=== PATIENT | male | born 1970 | race Two or more races ===

== ENCOUNTER 2023-12-16 20:10 | Inpatient (IN) | payer MEDICAID ==
[2023-12-16 20:50] LABS: BASOPHILS % (AUTO) 0.3 %; EOSINOPHILS # (AUTO) 0.1 10^3/uL (0.0-0.7); HGB - HEMOGLOBIN 12.7 g/dL (14.0-18.0); LYMPHOCYTES # (AUTO) 0.8 10^3/uL (1.5-3.5); LYMPHOCYTES % (AUTO) 6.3 %; MEAN CORPUSCULAR HEMOGLOBIN 34.8 pg (27.0-31.0); MEAN CORPUSCULAR HGB CONC 34.3 g/dL (32.0-36.0); MEAN CORPUSCULAR VOLUME 101.4 fL (80.0-94.0); MEAN PLATELET VOLUME 8.8 fL (7.4-11.4); MONOCYTES # (AUTO) 0.4 10^3/uL (0.0-1.0); MONOCYTES % (AUTO) 3.3 %; NEUTROPHILS # (AUTO) 11.7 10^3/uL (1.5-6.6); NEUTROPHILS % (AUTO) 88.6 %; PLT - PLATELET COUNT 104 10^3/uL (130-450); RED BLOOD COUNT 3.65 10^6/uL (4.70-6.10); RED CELL DISTRIBUTION WIDTH 14.6 % (12.0-15.0); WHITE BLOOD COUNT 13.2 x10^3/uL (4.8-10.8)
[2023-12-16 20:57] LABS: INR 1.4 (0.8-1.2); PT - PROTHROMBIN TIME 15.1 secs (9.9-12.6)
[2023-12-16] MEDS: HYDROmorphone 1 MG/ML CARPUJECT IVP STA (20:57)
--- NOTE | 2023-12-16 21:00 | ED Physician Documentation ---
History of Present Illness - Stated complaint Stated Complaint: ABD PX - Chief complaint Chief Complaint: Abd Pain - History obtained from History obtained from: Patient - Additonal information Additional information: 53-year-old man with history of hep C cirrhosis presents with nonproductive cough, shortness of breath and abdominal pain and bloating sensation for the past couple of days, worsening acutely today. Patient just got off of a 10-hour bus from [place] yesterday. Denies fever, nausea vomiting diarrhea, back pain, chest pain. PD PAST MEDICAL HISTORY - Present Medications Home Medications: Ambulatory Orders Medication Instructions Recorded Confirmed No Known Home Medications 12/16/23 12/16/23 - Allergies Allergies/Adverse Reactions: Allergies Allergy/AdvReac Type Severity Reaction Status Date / Time No Known Drug Allergies Allergy Verified 12/16/23 20:37 PD ED PE NORMAL - Vitals Vital signs reviewed: Yes - General General: Alert and oriented X 3, No acute distress, Well developed/nourished - HEENT HEENT: Atraumatic, PERRL, EOMI - Neck Neck: Supple, no meningeal sign - Cardiac Cardiac: Other (Tachycardic rate, regular rhythm) - Respiratory Respiratory: No respiratory distress, Clear bilaterally - Abdomen Abdomen: Other (Diffusely tender to palpation. Moderately distended) - Back Back: No CVA TTP - Derm Derm: Normal color, Warm and dry Results - Vitals Vitals: Vital Signs - 24 hr 12/16/23 12/16/23 12/16/23 20:25 23:00 23:30 Temperature 37.6 C Heart Rate 126 H 116 H 115 H Respiratory 16 23 Rate Blood Pressure 175/100 H 178/103 H 170/112 H O2 Saturation 99 94 94 12/17/23 12/17/23 12/17/23 00:00 01:00 01:57 Temperature Heart Rate 112 H 111 H 117 H Respiratory 24 22 24 Rate Blood Pressure 158/99 H 158/99 H 144/103 H O2 Saturation 94 94 95 Oxygen O2 Source Room air - EKG (time done) 2050 EKG releavant findings:: EKG personally interpreted by author of this note. Relevant findings are: Rate: Rate (enter#) (127) Rhythm: Sinus tachycardia, Other (significant artifact) - Labs Labs: Laboratory Tests 12/16/23 12/16/23 12/16/23 20:43 20:43 20:43 WBC 13.2 H RBC 3.65 L Hgb 12.7 L Hct 37.0 L MCV 101.4 H MCH 34.8 H MCHC 34.3 RDW 14.6 Plt Count 104 L MPV 8.8 Neut # (Auto) 11.7 H Lymph # (Auto) 0.8 L [place] # (Auto) 0.4 Eos # (Auto) 0.1 Baso # (Auto) 0.0 Absolute Nucleated RBC 0.00 Nucleated RBC % 0.0 PT 15.1 H INR 1.4 H VBG pH VBG pCO2 VBG pO2 VBG HCO3 VBG Total CO2 VBG O2 Saturation VBG Base Excess Sodium 135 Potassium 4.2 Chloride 105 Carbon Dioxide 25 Anion Gap 5.0 L BUN 12 Creatinine 0.7 Estimated GFR (MDRD) 119 Glucose 101 Calcium 8.3 L Total Bilirubin 3.3 H AST 90 H ALT 68 H Alkaline Phosphatase 172 H B-Natriuretic Peptide Total Protein 6.2 L Albumin 2.5 L Globulin 3.7 Albumin/Globulin Ratio 0.7 L Lipase 68 Nasal Adenovirus (PCR) Nasal B. parapertussis DNA (PCR) Nasal Coronavir 229E PCR Nasal Coronavir HKU1 PCR Nasal Coronavir NL63 PCR Nasal Coronavir OC43 PCR Nasal Enterovir/Rhinovir PCR Nasal Influenza B PCR Nasal Influenza A PCR Nasal Parainfluen 1 PCR Nasal Parainfluen 2 PCR Nasal Parainfluen 3 PCR Nasal Parainfluen 4 PCR Nasal RSV (PCR) Nasal B.pertussis DNA PCR Nasal C.pneumoniae (PCR) Wil Human Metapneumo PCR Nasal M.pneumoniae (PCR) Nasal SARS-CoV-2 (PCR) 12/16/23 12/16/23 12/16/23 20:43 21:12 23:20 WBC RBC Hgb Hct MCV MCH MCHC RDW Plt Count MPV Neut # (Auto) Lymph # (Auto) [place] # (Auto) Eos # (Auto) Baso # (Auto) Absolute Nucleated RBC Nucleated RBC % PT INR VBG pH 7.442 H VBG pCO2 37.6 L VBG pO2 113.3 H VBG HCO3 25.1 VBG Total CO2 26.2 VBG O2 Saturation 98.4 H VBG Base Excess 1.1 Sodium Potassium Chloride Carbon Dioxide Anion Gap BUN Creatinine Estimated GFR (MDRD) Glucose Calcium Total Bilirubin AST ALT Alkaline Phosphatase B-Natriuretic Peptide 248 H Total Protein Albumin Globulin Albumin/Globulin Ratio Lipase Nasal Adenovirus (PCR) NOT DETECTED Nasal B. parapertussis DNA (PCR) NOT DETECTED Nasal Coronavir 229E PCR NOT DETECTED Nasal Coronavir HKU1 PCR NOT DETECTED Nasal Coronavir NL63 PCR NOT DETECTED Nasal Coronavir OC43 PCR NOT DETECTED Nasal Enterovir/Rhinovir PCR NOT DETECTED Nasal Influenza B PCR NOT DETECTED Nasal Influenza A PCR NOT DETECTED Nasal Parainfluen 1 PCR NOT DETECTED Nasal Parainfluen 2 PCR NOT DETECTED Nasal Parainfluen 3 PCR NOT DETECTED Nasal Parainfluen 4 PCR NOT DETECTED Nasal RSV (PCR) NOT DETECTED Nasal B.pertussis DNA PCR NOT DETECTED Nasal C.pneumoniae (PCR) NOT DETECTED Wil Human Metapneumo PCR NOT DETECTED Nasal M.pneumoniae (PCR) NOT DETECTED Nasal SARS-CoV-2 (PCR) NOT DETECTED PD Medical Decision Making - ED course ED course: 53-year-old man presents with shortness of breath, cough, abdominal pain and ascites. He is persistently tachycardic in the ED despite fluids and pain medication. His CTA of the chest shows no pulmonary embolism and no acute findings in the lung. His CT abdomen pelvis shows gallstones and enlarged gallbladder with gallbladder wall thickening. Ultrasound is negative for sonographic Garrison sign, does show 5 mm gallbladder wall thickening but no CBD dilation. His CT also showed right sided intestinal wall thickening concerning for possible colitis. I discussed with Dr. Landeros who does not believe that these are of clinical significance and attributes the GB wall and colonic thickening to ascites. He recommended admission to medicine and that he could follow as needed. No beds available therefore patient will be endorsed to [facility] daytime EDMD at 7 AM shift change. Departure - Departure Clinical Impression: Abdominal pain, Tachycardia, Colitis, Gallstone Condition: Fair Forms: PCP List
[2023-12-16 21:02] LABS: ALBUMIN 2.5 g/dL (3.2-5.5); ALBUMIN/GLOBULIN RATIO 0.7 (1.0-2.2); BILIRUBIN,TOTAL 3.3 mg/dL (0.2-1.0); CALCIUM 8.3 mg/dL (8.5-10.3); CREATININE 0.7 mg/dL (0.6-1.3); POTASSIUM 4.2 mmol/L (3.5-4.5); TOTAL PROTEIN 6.2 g/dL (6.4-8.9)
[2023-12-16] MEDS ORDERED: iohexoL-300 100 ML VIAL ONE (21:45)
[2023-12-16 21:49] LABS: VBG BASE EXCESS 1.1 mmol/L (-2 - +2); VBG HCO3 25.1 mmol/L (23-28); VBG OXYGEN SATURATION 98.4 % (60-80); VBG PCO2 37.6 mmHg (41-51); VBG PH 7.442 (7.31-7.41); VBG PO2 113.3 mmHg (25-47); VBG TOTAL CO2 26.2 mmol/L (24-29)
[2023-12-16] MEDS: iohexoL-300 100 ML VIAL IVP ONE (22:02)
--- NOTE | 2023-12-16 22:09 | CT Report ---
PROCEDURE: Angio Chest INDICATIONS: soa, cough, recent travel >10h, leg swelling CONTRAST: 100ml [id number] TECHNIQUE: After the administration of intravenous contrast, 2 mm axial images were acquired from the pulmonary apices to the posterior costophrenic angles during the arterial phase. In addition, 1 mm lung kernel and 5 mm soft tissue kernel reconstructions were performed. 3-dimensional coronal oblique maximum int ensity projection (MIP) reformats, 8 mm axial MIP, and 5 mm coronal and sagittal MPR reformats were t hen performed through the thorax. For radiation dose reduction, the following was used: automated exp osure control, adjustment of mA and/or kV according to patient size. COMPARISON: None. FINDINGS: Image quality: Excellent. Large vessels: No filling defects within the opacified pulmonary arteries, accounting for motion and contrast timing. No evidence of acute aortic syndrome or aortic aneurysm. Lungs and pleura: No consolidation. No pleural effusions. No pneumothorax. No suspicious pulmonary no dules which require follow up. Mediastinum: Heart size is normal. No pericardial effusion. No large vessel abnormality. No mediastin al adenopathy by size criteria. Chest wall and lower neck: Thyroid is unremarkable. No axillary or supraclavicular adenopathy by size . Bones: No aggressive osseous abnormality. Upper Abdomen: Ascites. Please see separate dictated same-day CT abdomen and pelvis. IMPRESSION: 1. No pulmonary embolus. 2. No acute airspace opacity. 3. Ascites. Reviewed by: Robbie Kirk MD on 12/16/2023 10:07 PM PDT Approved by: Robbie Krik MD on 12/16/2023 10:07 PM PDT Station ID: [id number]
--- NOTE | 2023-12-16 22:22 | CT Report ---
PROCEDURE: Abdomen/Pelvis W INDICATIONS: abdominal bloating, pain, hx cirrhosis CONTRAST: 100ml [id number] TECHNIQUE: After the administration of intravenous contrast, a CT scan of the abdomen and pelvis was performed. Images were recorded and evaluated at appropriate window settings. Reformats: coronal and sagittal. F or radiation dose reduction, the following was used: automated exposure control, adjustment of mA and /or kV according to patient size. COMPARISON: None. FINDINGS: Image quality: Diagnostic. Lower chest: Unremarkable. Liver: The liver surface appears nodular. Suspected cirrhosis. No mass identified. Gallbladder: Distended. Gallstone measuring 1.8 cm. Biliary tree: No intrahepatic or extrahepatic dilation, accounting for age. Spleen: Mild splenomegaly measuring 13.9 cm. Pancreas: No pancreatic ductal dilation. Adrenals: No adrenal nodule. Kidneys and ureters: No hydronephrosis. Obstruction left kidney stone measuring 0.4 cm. Punctate nono bstructing left kidney stone. No renal cystic lesion which requires follow up. No solid mass. Stomach, bowel and peritoneum: Thickening of the right colon. Normal appendix. No small bowel obstruc tion. Stomach is within normal limits. Moderate volume of ascites. No pneumoperitoneum. Lymph nodes: No central or retroperitoneal adenopathy. Vessels: No infrarenal aortic aneurysm. Calcified atherosclerotic plaque. Patent portal vein. Recannu lization of the periumbilical vein. PELVIS Reproductive organs: Unremarkable. Bladder: No abnormal wall thickening, accounting for underdistention. Pelvic lymph nodes: No pelvic adenopathy by size criteria. Bones: No aggressive osseous abnormality. L1 compression fracture. T10 Schmorl's node. T10-T11 disc s pace height loss. Other: No significant ventral or inguinal hernia. Anasarca. IMPRESSION: 1. Right colonic wall thickening. Suggestive of a colitis. Recommend follow-up colonoscopy if not yet performed. 2. No small bowel obstructive. Normal appendix. 3. Cirrhosis. Mild splenomegaly. Moderate volume of ascites. 4. Gallstone. Nonobstructing kidney stones. Reviewed by: Robbie Kirk MD on 12/16/2023 10:21 PM PDT Approved by: Robbie Kirk MD on 12/16/2023 10:21 PM PDT Station ID: [id number]
[2023-12-17] MEDS: SODIUM CHLORIDE 0.9% 500 ML IV STA (00:02)
[2023-12-17 00:21] LABS: B. PARAPERTUSSIS- RESP PCR PAN NOT DETECTED; B. PERTUSSIS- RESP PCR PANEL NOT DETECTED; C. PNEUMONIAE- RESP PCR PANEL NOT DETECTED; CORONAVIRUS 229E-RESP PCR NOT DETECTED; CORONAVIRUS HKU1-RESP PCR NOT DETECTED; CORONAVIRUS NL63-RESP PCR NOT DETECTED; CORONAVIRUS OC43-RESP PCR NOT DETECTED; HUMAN METAPNEUMOVIRUS NOT DETECTED; INFLUENZA A- RESP PCR PANEL NOT DETECTED; INFLUENZA B - RESP PCR PANEL NOT DETECTED; M. PNEUMONIAE- RESP PCR PANEL NOT DETECTED; PARAINFLUENZA VIRUS 1 NOT DETECTED; PARAINFLUENZA VIRUS 2 NOT DETECTED; PARAINFLUENZA VIRUS 3 NOT DETECTED; PARAINFLUENZA VIRUS 4 NOT DETECTED; RHINOVIRUS/ENTEROVIRUS NOT DETECTED; RSV- RESP PCR PANEL NOT DETECTED; SARS-CoV-2 -RESP PCR PANEL NOT DETECTED
--- NOTE | 2023-12-17 01:33 | Ultrasound Report ---
PROCEDURE: Abdomen Limited INDICATIONS: gallstones on ct, +abdominal pain TECHNIQUE: Real-time focused scanning was performed of the abdomen, with image documentation. COMPARISONS: None. FINDINGS: Liver: Measures 14.9 cm. Coarsened and heterogeneous echotexture. Main portal vein demonstrates biph asic flow. Gallbladder: Suboptimally visualized. Not distended. Gallbladder wall thickening measuring 5.1 mm. Ga llstones are seen. No pericholecystic fluid appreciated. Negative sonographic Garrison's sign. Biliary ducts: Intrahepatic bile ducts are non-dilated. Not well seen. CBD measures approximately 4 mm. Pancreas: Not well seen. Overlying bowel gas. Right kidney: Normal in size and echotexture. Right kidney measures 10.4 cm long. No hydronephrosis or nephrolithiasis. No solid masses. No complex renal cystic lesions which require follow-up. IVC: Intrahepatic inferior vena cava is patent. Miscellaneous: No free abdominal fluid. IMPRESSION: Technically difficult exam. Overlying bowel gas. Findings of cirrhosis and portal hypertension. Gallbladder wall thickening. Gallstones. However, gallbladder is not distended and no pericholecystic fluid. Low suspicion for acute cholecystitis. Reviewed by: Robbie Kirk MD on 12/17/2023 1:32 AM PDT Approved by: Robbie Kirk MD on 12/17/2023 1:32 AM PDT Station ID: [id number]
[2023-12-17] MEDS ORDERED: ONDANSETRON 4 MG/2 ML VIAL IVP PRN (02:03)
[2023-12-17] MEDS ORDERED: HYDROmorphone 0.5 MG/0.5 ML SYRINGE IVP PRN (02:05)
[2023-12-17] MEDS: HYDROmorphone 0.5 MG/0.5 ML SYRINGE IVP STA (02:17)
[2023-12-17 05:08] LABS: BILIRUBIN,URINE SMALL (NEGATIVE); CLARITY,URINE CLEAR (CLEAR); GLUCOSE, URINE (UA) NEGATIVE (NEGATIVE); KETONES,URINE (UA) NEGATIVE (NEGATIVE); LEUKOCYTE ESTERASE, URINE NEGATIVE (NEGATIVE); NITRITE,URINE NEGATIVE (NEGATIVE); OCCULT BLOOD,URINE TRACE-INTA (NEGATIVE); PH,URINE 5.5 PH (5.0-7.5); PROTEIN,URINE NEGATIVE (NEGATIVE); UROBILINOGEN,URINE 2 E.U./dL (NORMAL)
[2023-12-17 05:41] LABS: BASOPHILS # (AUTO) 0.1 10^3/uL (0.0-0.1); BASOPHILS % (AUTO) 0.5 %; EOSINOPHILS # (AUTO) 0.1 10^3/uL (0.0-0.7); EOSINOPHILS % (AUTO) 0.8 %; HCT - HEMATOCRIT 36.4 % (42.0-52.0); HGB - HEMOGLOBIN 12.5 g/dL (14.0-18.0); LYMPHOCYTES # (AUTO) 1.8 10^3/uL (1.5-3.5); MEAN CORPUSCULAR HEMOGLOBIN 34.6 pg (27.0-31.0); MEAN CORPUSCULAR HGB CONC 34.3 g/dL (32.0-36.0); MEAN CORPUSCULAR VOLUME 100.8 fL (80.0-94.0); MEAN PLATELET VOLUME 8.9 fL (7.4-11.4); MONOCYTES # (AUTO) 0.6 10^3/uL (0.0-1.0); NEUTROPHILS # (AUTO) 12.4 10^3/uL (1.5-6.6); NEUTROPHILS % (AUTO) 82.2 %; PLT - PLATELET COUNT 93 10^3/uL (130-450); RED BLOOD COUNT 3.61 10^6/uL (4.70-6.10); RED CELL DISTRIBUTION WIDTH 14.6 % (12.0-15.0); WHITE BLOOD COUNT 15.1 x10^3/uL (4.8-10.8)
[2023-12-17 05:58] LABS: CALCIUM 8.2 mg/dL (8.5-10.3); CREATININE 0.7 mg/dL (0.6-1.3)
[2023-12-17] MEDS: PANTOPRAZOLE 40 MG TABLET PO SCH (07:21)
[2023-12-17] MEDS: HYDROmorphone 1 MG/ML CARPUJECT IVP STA (08:12)
[2023-12-17 09:47] LABS: CC,BF RBC 0 /mm^3
[2023-12-17] MEDS: MEROPENEM 1 GM in SODIUM CHLORIDE 0.9% MINIBAG 100 ML IV STA (09:52)
[2023-12-17 09:53] LABS: BF CLARITY CLOUDY; BF COLOR YELLOW; BF SOURCE PERITONEAL
[2023-12-17 10:00] LABS: CC,BF WBC 21005 /mm^3
[2023-12-17 10:12] LABS: LYMPHOCYTES %,BODY FLUID 2 %; MESOTHELIAL %, BF 7 %; MONOCYTES %,BODY FLUID 4 %; NEUTROPHILS %, BF 87 %
--- NOTE | 2023-12-17 10:12 | ED Physician Documentation ---
ED Addendum - Addendum Addendum: 12/17/23 10:09 Seen after change of shift. He was having some return of abdominal pain and was given a repeat dose of hydromorphone 1 mg IV. He was maintained on some IV fluids. This seemed to provide reduction in the discomfort. He does have a history of liver cirrhosis with ascites and was having generalized abdominal pain on exam with tenderness diffusely. No percussion or rebound per se but generally tender. Bowel sounds hypoactive but present. He does have an elevated white count which increased some on repeat this morning. No other obvious infectious source at this time. I discussed with the patient attempting paracentesis for both diagnostic and therapeutic. He does not feel hugely distended but there is some moderate distention with a fluid wave to percussion. Bedside ultrasound does show a window for paracentesis with fluid and no bowel loops on the right side. Discussion with the patient about goal of the test, alternatives, complications, risks and benefits. He would like me to try draining some fluid. A paracentesis was performed on the right lower abdomen. The initial scalpel sara to introduce the catheter had a small venous blood vessel under the skin which was oozing. I did a [id number] stitch in that spot and anesthetized slightly away from that after reevaluating with bedside ultrasound. No bleeding with this attempt and I was able to draw out approximately 100 cc of fluid that was cloudy yellow without any blood. Placing the catheter to vacuum suction did not draw out any fluid. I tried hand pulling with the syringe further but was only get able to get up to the 100 mL. This was not really enough for therapeutic per se but was able to get a diagnostic sample for concern of SBP. At this point I will start the patient on antibiotics empirically given the cloudy appearance of it with that leukocytosis and abdominal pain. Pending cell count and cultures. Procedures - Paracentesis - Major Preparation: Consent obtained, Ultrasound guidance, Sterile prep and drape, Local anesthesia Location: RLQ Technique: Catheter over needle Fluid: Cloudy, Sent for cell count, Sent for gram stain, Sent for culture Aftercare: No complications, Patient tolerated well, Dressing applied
--- NOTE | 2023-12-17 12:36 | HISTORY & PHYSICAL EXAMINATION ---
Chief Complaint - Chief Complaint Chief Complaint: abdominal pain History of Present Illness - Admitted From Admitted From:: ED - History Obtained From History obtained from: Patient - History of Present Illness HPI Comment/Other: History of Hep C cirrhosis presents to Ed with complaints of bloating and abdominal pain. denies any changes in his stools or fever. also complains of cough. does not have any chest pain. History - Past Medical History Respiratory: reports: None Neuro: reports: None Endocrine/Autoimmune: reports: None GI: reports: None LAND DEPARTMENT HEAD: reports: None : reports: None HEENT: reports: None Psych: reports: ADD/ADHD Musculoskeletal: reports: None Derm: reports: None MRSA Hx?: No - Family & Social History Living arrangement: At home Living Situation: Other (traveling. staying with his girlfriend. got off a bus from [place] yesterday. says that he lives there. ) - Substance History Use: Uses substance without health or social issues: Tobacco (a pack per week. ), Alcohol (says drinks a 6 pack every few months. ) Tobacco Details: Cigarettes - POLST Patient has POLST: No POLST Status: Full Code Meds/Allgy - Home Medications Home Medications: Ambulatory Orders Medication Instructions Recorded Confirmed Sulfamethox/Trimeth 800/160 1 tab PO BID 12/17/23 12/17/23 [Bactrim Ds] cephALEXin [Keflex] 500 mg PO QID 12/17/23 12/17/23 - Allergies Allergies/Adverse Reactions: Allergies Allergy/AdvReac Type Severity Reaction Status Date / Time No Known Drug Allergies Allergy Verified 12/16/23 20:37 Review of Systems - Constitutional Constitutional: reports: Fatigue, Malaise. denies: Fever - Eyes Eyes: denies: Pain - Ears, Nose & Throat Ears, Nose & Throat: denies: Vertigo - Cardiovascular Cariovascular: denies: Irregular heart rate, Palpitations, Chest pain - Respiratory Respiratory: reports: Cough (dry) - Gastrointestinal Gastrointestinal: reports: Abdominal pain, Abdominal distention, Bloating - Genitourinary Genitourinary: reports: Other (denies dark urine). denies: Dysuria - Musculoskeletal Musculoskeletal: denies: Muscle pain - Integumentary Integumentary: denies: Rash - Neurological Neurological: denies: Focal weakness, Headache - Psychiatric Psychiatric: denies: Depression - Endocrine Endocrine: denies: Polyuria, Polydypsia - Hematologic/Lymphatic Hematologic/Lymphatic: denies: Anemia - All Other Systems All Other Systems: reports: Reviewed and negative Prior Level of Functionality: independent Exam - Vital Signs Vital Signs: Vital Signs x48h Pulse Resp BP Pulse Ox O2 Flow Rate 12/17/23 11:30 104 H 20 128/76 99 12/17/23 11:00 105 H 18 117/105 H 98 12/17/23 10:30 111 H 22 144/90 H 95 12/17/23 10:00 119 H 20 145/81 H 98 12/17/23 09:30 115 H 20 157/126 H 96 12/17/23 09:00 116 H 18 145/74 H 93 2 12/17/23 08:30 117 H 22 153/120 H 93 2 12/17/23 08:00 111 H 20 143/88 H 93 12/17/23 07:30 115 H 22 160/103 H 12/17/23 07:00 121 H 20 149/107 H 96 12/17/23 06:30 114 H 22 93 12/17/23 06:00 116 H 22 160/104 H 93 12/17/23 05:30 114 H 22 93 12/17/23 05:00 118 H 22 93 - Physical Exam General Appearance: positive: No acute distress Eyes Bilateral: positive: Normal inspection ENT: positive: ENT inspection nml Neck: positive: Nml inspection Respiratory: positive: Chest non-tender, No respiratory distress, Breath sounds nml Cardiovascular: positive: Tachycardia (low 100's) Abdomen: positive: Tenderness (mild diffuse tenderness. moderate distension) Skin: positive: Color nml, Other (right dorsal foot, peeling, dry scabs) Extremities: positive: Non-tender, Pedal edema (mild) Neurologic/Psychiatric: positive: Oriented x3 Conclusion/Plan - Problem List (1) SBP (spontaneous bacterial peritonitis) Conclusion/Plan: abdominal pain, afebrile with sinus tachycardia. CT shows some colon wall thickening, but otherwise not remarkable. Moderate cirrhosis There was a minimal amount of fluid drawn off at paracentesis, diagnostic for SBP with elevated WBC. C&S is pending. histroy of Hep C cirrhosis. Lactate negative at 1.1eukocytosis at 15.1 Patient does not show signs of sepsis. Will treat with rocephin. (2) Cirrhosis of liver Conclusion/Plan: hx Hep C cirrhosis. patient denies h/o treatment for Hep C ammonia 37- no hepatic encephalopathy. will treat his SBP (3) Elevated brain natriuretic peptide (BNP) level Conclusion/Plan: CTA shows no airspace disease. He is requiring supplemental oxygen 2 L via nasal cannula to maintain sats in the high 90s this could be secondary to his ascites and SBP. Will continue to follow his respiratory status. - Lab Results Fish Bones: 12/17/23 05:33 12/17/23 05:33
--- NOTE | 2023-12-17 15:16 | PHARMACY PROGRESS NOTE ---
- Best Possible Medication History Admit Date and Time: 12/17/23 1134 Processed by: Pharmacy Medications reviewed in ED?: Yes Medication History completed: Yes Patient Interview: Completed Secondary Source(s): Pharmacy records, Insurance records As the person ultimately responsible for medication therapy, providers are able to order a medication from an existing home medication list in [facility] via the "Reconcile Routine" prior to Confirmation of that medication by customer support advisor. Such practice is discouraged except when the physician, in their clinical judgment, deems that a medical need exists for a medication without regard to previous use.
[2023-12-17] MEDS: SODIUM CHLORIDE FLUSH 0.9% 10 ML SYRINGE IVP SCH (16:22)
[2023-12-17] MEDS: HYDROmorphone 0.5 MG/0.5 ML SYRINGE IVP PRN (16:22)
[2023-12-17] MEDS: HEPARIN 5,000 UNIT/ML VIAL SUBQ SCH (18:13)
[2023-12-18 05:17] LABS: BASOPHILS % (AUTO) 0.3 %; EOSINOPHILS # (AUTO) 0.3 10^3/uL (0.0-0.7); EOSINOPHILS % (AUTO) 2.1 %; HCT - HEMATOCRIT 35.5 % (42.0-52.0); HGB - HEMOGLOBIN 11.9 g/dL (14.0-18.0); LYMPHOCYTES # (AUTO) 2.5 10^3/uL (1.5-3.5); LYMPHOCYTES % (AUTO) 18.8 %; MEAN CORPUSCULAR HEMOGLOBIN 34.6 pg (27.0-31.0); MEAN CORPUSCULAR HGB CONC 33.5 g/dL (32.0-36.0); MEAN CORPUSCULAR VOLUME 103.2 fL (80.0-94.0); MEAN PLATELET VOLUME 9.6 fL (7.4-11.4); MONOCYTES # (AUTO) 1.1 10^3/uL (0.0-1.0); MONOCYTES % (AUTO) 8.5 %; NEUTROPHILS # (AUTO) 9.1 10^3/uL (1.5-6.6); NEUTROPHILS % (AUTO) 69.5 %; PLT - PLATELET COUNT 93 10^3/uL (130-450); RED BLOOD COUNT 3.44 10^6/uL (4.70-6.10); RED CELL DISTRIBUTION WIDTH 14.7 % (12.0-15.0)
[2023-12-18 05:31] LABS: CALCIUM 8.2 mg/dL (8.5-10.3); CREATININE 0.7 mg/dL (0.6-1.3); POTASSIUM 4.2 mmol/L (3.5-4.5)
[2023-12-18] MEDS: cefTRIAXone 2 GM in SODIUM CHLORIDE 0.9% MINIBAG 100 ML IV SCH (09:25)
[2023-12-18] MEDS: SPIRONOLACTONE 25 MG TABLET PO SCH (11:51)
[2023-12-18] MEDS: FUROSEMIDE 40 MG TABLET PO SCH (11:52)
[2023-12-18] MEDS: SODIUM CHLORIDE FLUSH 0.9% 10 ML SYRINGE IVP PRN (13:10)
[2023-12-18] MEDS: ALBUTEROL NEB 2.5 MG/3 ML INH PRN (13:19)
--- NOTE | 2023-12-18 15:03 | PROVIDER PROGRESS NOTE ---
Subjective - Prog Note Date Prog Note Date: 12/18/23 Prog Note Time: 15:01 - Subjective Pt reports feeling: No change Subjective: No acute events overnight. He does continues to still have abdominal pain that is stable to slightly improved from admission. Denies any vomiting though he has a poor appetite. Remains afebrile and has no chest pain, shortness of breath, cough, diarrhea, melena or hematochezia. Objective - Vital Signs/Intake & Output Reviewed Vital Signs: Yes Vital Signs: Vital Signs x48h Temp Pulse Pulse Resp BP Pulse Ox O2 Flow Rate 12/18/23 13:21 79 16 2 12/18/23 07:43 36.7 C 103 H 28 H 157/94 H 96 2 12/18/23 07:21 2 Intake & Output: Intake & Output 12/15/23 12/16/23 12/17/23 12/18/23 23:59 23:59 23:59 23:59 Intake Total 920 1360 Output Total 100 Balance 820 1360 - Objective General Appearance: positive: Alert, Other (No active distress though he does appear uncomfortable. Also appears chronically ill and older than stated age.) Eyes Bilateral: positive: Normal inspection, PERRL, EOMI ENT: positive: ENT inspection nml, Pharynx nml, No signs of dehydration Neck: positive: Nml inspection, Thyroid nml, No JVD, Trachea midline Respiratory: positive: No respiratory distress, Breath sounds nml. negative: Wheezes, Rales, Rhonchi Cardiovascular: positive: Regular rate & rhythm, No murmur, No gallop Abdomen: positive: Other (slightly firm, distended with fluid wave, diffuse TTP but no guarding or rebound, bowel sounds present) Back: positive: Nml inspection Extremities: positive: Non-tender, Pedal edema (1+ edema bilaterally) Neurologic/Psychiatric: positive: Oriented x3, CN's nml (2-12), Motor nml, Sensation nml - Lab Results Fish Bones: 12/18/23 04:27 12/18/23 04:27 Other Labs: Lab Results x24hrs 12/18/23 12/18/23 12/18/23 Range/Units 04:27 04:27 04:27 WBC 13.0 H (4.8-10.8) x10^3/uL RBC 3.44 L (4.70-6.10) 10^6/uL Hgb 11.9 L (14.0-18.0) g/dL Hct 35.5 L (42.0-52.0) % MCV 103.2 H (80.0-94.0) fL MCH 34.6 H (27.0-31.0) pg MCHC 33.5 (32.0-36.0) g/dL RDW 14.7 (12.0-15.0) % Plt Count 93 L (130-450) 10^3/uL MPV 9.6 (7.4-11.4) fL Neut # (Auto) 9.1 H (1.5-6.6) 10^3/uL Lymph # (Auto) 2.5 (1.5-3.5) 10^3/uL [place] # (Auto) 1.1 H (0.0-1.0) 10^3/uL Eos # (Auto) 0.3 (0.0-0.7) 10^3/uL Baso # (Auto) 0.0 (0.0-0.1) 10^3/uL Absolute Nucleated RBC 0.00 x10^3/uL Nucleated RBC % 0.0 /100WBC Sodium 132 L (135-145) mmol/L Potassium 4.2 (3.5-4.5) mmol/L Chloride 102 (101-111) mmol/L Carbon Dioxide 27 (21-32) mmol/L Anion Gap 3.0 L (6-13) BUN 13 (6-20) mg/dL Creatinine 0.7 (0.6-1.3) mg/dL Estimated GFR (MDRD) 119 (>89) Glucose 92 (74-104) mg/dL Calcium 8.2 L (8.5-10.3) mg/dL Procalcitonin Immunoas 2.86 H* (<0.5) ng/mL Nasal Screen MRSA (PCR) (NEGATIVE) 12/17/23 Range/Units 15:10 WBC (4.8-10.8) x10^3/uL RBC (4.70-6.10) 10^6/uL Hgb (14.0-18.0) g/dL Hct (42.0-52.0) % MCV (80.0-94.0) fL MCH (27.0-31.0) pg MCHC (32.0-36.0) g/dL RDW (12.0-15.0) % Plt Count (130-450) 10^3/uL MPV (7.4-11.4) fL Neut # (Auto) (1.5-6.6) 10^3/uL Lymph # (Auto) (1.5-3.5) 10^3/uL [place] # (Auto) (0.0-1.0) 10^3/uL Eos # (Auto) (0.0-0.7) 10^3/uL Baso # (Auto) (0.0-0.1) 10^3/uL Absolute Nucleated RBC x10^3/uL Nucleated RBC % /100WBC Sodium (135-145) mmol/L Potassium (3.5-4.5) mmol/L Chloride (101-111) mmol/L Carbon Dioxide (21-32) mmol/L Anion Gap (6-13) BUN (6-20) mg/dL Creatinine (0.6-1.3) mg/dL Estimated GFR (MDRD) (>89) Glucose (74-104) mg/dL Calcium (8.5-10.3) mg/dL Procalcitonin Immunoas (<0.5) ng/mL Nasal Screen MRSA (PCR) NEGATIVE (NEGATIVE) - Diagnostic Imaging Diagnostic Imaging Comments: CT Abdomen 12/16/23 1. Right colonic wall thickening. Suggestive of a colitis. Recommend follow- up colonoscopy if not yet performed. 2. No small bowel obstruction. Normal appendix. 3. Cirrhosis. Mild splenomegaly. Moderate volume of ascites. 4. Gallstones. Nonobstructing kidney stones. Abdominal Ultrasound 12/16/23: 1. Technically difficult exam. Overlying bowel gas. 2. Findings of cirrhosis and portal hypertension. 3. Gallbladder wall thickening. Gallstones. However gallbladder is not distended and no pericholecystic fluid. Low suspicion for acute cholecystitis. Chest CTA 12/16/23: 1. No pulmonary embolism. 2. No acute airspace opacity. 3. Ascites. Assessment/Plan - Problem List (1) SBP (spontaneous bacterial peritonitis) Impression: He presented with abdominal pain, leukocytosis and CT findings consistent with colitis and ascites. -He underwent diagnostic paracentesis which showed a WBC of 21,000 that is 87% neutrophils. -Fluid culture pending, NGTD thus far. -Continue IV Ceftriaxone, add Metronidazole given colitis on CT. -Currently has no renal dysfunction, hypotension, etc. No need for IV Albumin or Midodrine/Octreotide. (2) Cirrhosis of liver with ascites Impression: He reports having a history of cirrhosis in the past however he has not been diagnosed with ascites and has not been on any therapy directed of cirrhosis. Currently has moderate ascites based on CT scan and exam. -Treat SBP as noted above. -Will place on furosemide 40 mg and spironolactone 100 mg. -Abdominal ultrasound was negative for portal vein thrombosis. -Repeat CMP and PT/INR tomorrow. -He reports that he will be establishing a PCP in the [place], [place] area as that is where he will go after discharge. (3) Elevated brain natriuretic peptide (BNP) level Impression: His BNP was noted to be mildly elevated at 248 at presentation and he is hypoxic requiring 2 L. He does not appear to be having acute CHF though he does have some fluid retention secondary to his cirrhosis. His hypoxia is likely secon randi to abdominal splinting from his ascites and abdominal pain leading to shallow breathing. -No need for IV diuresis however we are starting oral furosemide and spironolactone as noted above. -No need for echocardiogram at this time. (4) Acute respiratory failure with hypoxia Impression: His hypoxia is likely secondary to abdominal splinting/shallow breathing due to abdominal pain and ascites pressing on his diaphragm. -Continue supplemental oxygen and wean as tolerated. -Starting furosemide and spironolactone to aid in decreasing ascites.
[2023-12-18] MEDS: diphenhydrAMINE 25 MG CAPSULE PO PRN (16:17)
[2023-12-18] MEDS: metroNIDAZOLE 500 MG/100 ML 500 MG/100 ML BAG IV SCH (16:17)
[2023-12-18] MEDS: HYDROmorphone 0.5 MG/0.5 ML SYRINGE IVP PRN (17:31)
[2023-12-19 05:05] LABS: BASOPHILS % (AUTO) 0.5 %; EOSINOPHILS # (AUTO) 0.3 10^3/uL (0.0-0.7); EOSINOPHILS % (AUTO) 3.9 %; HCT - HEMATOCRIT 35.7 % (42.0-52.0); LYMPHOCYTES % (AUTO) 23.4 %; MEAN CORPUSCULAR HEMOGLOBIN 34.6 pg (27.0-31.0); MEAN CORPUSCULAR HGB CONC 33.6 g/dL (32.0-36.0); MEAN CORPUSCULAR VOLUME 102.9 fL (80.0-94.0); MEAN PLATELET VOLUME 9.7 fL (7.4-11.4); MONOCYTES # (AUTO) 0.8 10^3/uL (0.0-1.0); NEUTROPHILS # (AUTO) 5.2 10^3/uL (1.5-6.6); NEUTROPHILS % (AUTO) 62.2 %; PLT - PLATELET COUNT 112 10^3/uL (130-450); RED BLOOD COUNT 3.47 10^6/uL (4.70-6.10); RED CELL DISTRIBUTION WIDTH 14.4 % (12.0-15.0); WHITE BLOOD COUNT 8.4 x10^3/uL (4.8-10.8)
[2023-12-19 05:10] LABS: INR 1.5 (0.8-1.2); PT - PROTHROMBIN TIME 15.8 secs (9.9-12.6)
[2023-12-19 05:38] LABS: ALBUMIN 2.4 g/dL (3.2-5.5); ALBUMIN/GLOBULIN RATIO 0.6 (1.0-2.2); BILIRUBIN,TOTAL 2.9 mg/dL (0.2-1.0); CALCIUM 8.3 mg/dL (8.5-10.3); CREATININE 0.8 mg/dL (0.6-1.3); POTASSIUM 3.8 mmol/L (3.5-4.5); TOTAL PROTEIN 6.7 g/dL (6.4-8.9)
--- NOTE | 2023-12-19 11:09 | PROVIDER PROGRESS NOTE ---
Subjective - Prog Note Date Prog Note Date: 12/19/23 Prog Note Time: 11:07 - Subjective Pt reports feeling: Improved Subjective: No acute events overnight. He reports that he is overall slightly improved however still complains of diffuse abdominal pain requiring supplemental pain medication. Denies any fevers, chills, night sweats, chest pain, nausea, vomiting or diarrhea. Denies having any melena or bloody stools. Objective - Vital Signs/Intake & Output Vital Signs: Vital Signs x48h Temp Pulse Resp BP Pulse Ox 12/19/23 07:42 36.5 C 80 20 124/100 H 96 Intake & Output: Intake & Output 12/16/23 12/17/23 12/18/23 12/19/23 23:59 23:59 23:59 23:59 Intake Total 920 1700 660 Output Total 100 100 Balance 820 1700 560 - Objective General Appearance: positive: No acute distress, Alert, Other (Appears chronically ill and older than stated age) Eyes Bilateral: positive: Normal inspection, PERRL, EOMI ENT: positive: ENT inspection nml, Pharynx nml, No signs of dehydration Neck: positive: Nml inspection, Thyroid nml, No JVD, Trachea midline Respiratory: positive: Chest non-tender, No respiratory distress, Breath sounds nml. negative: Wheezes, Rales, Rhonchi Cardiovascular: positive: Regular rate & rhythm, No murmur, No gallop Abdomen: positive: Other (Slightly firm, distended with fluid wave, diffuse tenderness to palpation but no guarding or rebound. Bowel sounds present.) Skin: positive: Color nml, No rash, Warm, Dry Extremities: positive: Pedal edema (1+ edema bilaterally) Neurologic/Psychiatric: positive: Oriented x3, CN's nml (2-12), Motor nml, Sensation nml - Lab Results Fish Bones: 12/19/23 04:35 12/19/23 04:35 Other Labs: Lab Results x24hrs 12/19/23 12/19/23 12/19/23 Range/Units 04:35 04:35 04:35 WBC 8.4 (4.8-10.8) x10^3/uL RBC 3.47 L (4.70-6.10) 10^6/uL Hgb 12.0 L (14.0-18.0) g/dL Hct 35.7 L (42.0-52.0) % MCV 102.9 H (80.0-94.0) fL MCH 34.6 H (27.0-31.0) pg MCHC 33.6 (32.0-36.0) g/dL RDW 14.4 (12.0-15.0) % Plt Count 112 L (130-450) 10^3/uL MPV 9.7 (7.4-11.4) fL Neut # (Auto) 5.2 (1.5-6.6) 10^3/uL Lymph # (Auto) 2.0 (1.5-3.5) 10^3/uL [place] # (Auto) 0.8 (0.0-1.0) 10^3/uL Eos # (Auto) 0.3 (0.0-0.7) 10^3/uL Baso # (Auto) 0.0 (0.0-0.1) 10^3/uL Absolute Nucleated RBC 0.00 x10^3/uL Nucleated RBC % 0.0 /100WBC PT 15.8 H (9.9-12.6) secs INR 1.5 H (0.8-1.2) Sodium 132 L (135-145) mmol/L Potassium 3.8 (3.5-4.5) mmol/L Chloride 100 L (101-111) mmol/L Carbon Dioxide 27 (21-32) mmol/L Anion Gap 5.0 L (6-13) BUN 13 (6-20) mg/dL Creatinine 0.8 (0.6-1.3) mg/dL Estimated GFR (MDRD) 102 (>89) Glucose 98 (74-104) mg/dL Calcium 8.3 L (8.5-10.3) mg/dL Total Bilirubin 2.9 H (0.2-1.0) mg/dL AST 77 H (10-42) IU/L ALT 61 H (10-60) IU/L Alkaline Phosphatase 138 H (42-121) IU/L Total Protein 6.7 (6.4-8.9) g/dL Albumin 2.4 L (3.2-5.5) g/dL Globulin 4.3 H (2.1-4.2) g/dL Albumin/Globulin Ratio 0.6 L (1.0-2.2) Sepsis Event Note (H) - Evaluation Current Stage of Sepsis: Ruled out Assessment/Plan - Problem List (1) SBP (spontaneous bacterial peritonitis) Impression: He presented with abdominal pain, leukocytosis and CT findings consistent with colitis and ascites. -He underwent diagnostic paracentesis which showed a WBC of 21,000 that is 87% neutrophils. -Fluid culture NGTD thus far. -Continue IV Ceftriaxone, added Metronidazole yesterday given colitis on CT. -Currently has no renal dysfunction, hypotension, etc. No need for IV Albumin or Midodrine/Octreotide. (2) Cirrhosis of liver with ascites Impression: He reports having a history of cirrhosis in the past however he has not been diagnosed with ascites and has not been on any therapy directed of cirrhosis. Currently has moderate ascites based on CT scan and exam. -Treat SBP as noted above. -Will place on furosemide 40 mg and spironolactone 100 mg. -Abdominal ultrasound was negative for portal vein thrombosis.. -He reports that he will be establishing a PCP in the [place], [place] area as that is where he will go after discharge. -LFTs are stable to slightly improved from admission. (3) Elevated brain natriuretic peptide (BNP) level Impression: His BNP was noted to be mildly elevated at 248 at presentation and he is hypoxic requiring 2 L. He does not appear to be having acute CHF though he does have some fluid retention secondary to his cirrhosis. His hypoxia is likely secondary to abdominal splinting from his ascites and abdominal pain leading to shallow breathing. -No need for IV diuresis however we did start oral furosemide and spironolactone as noted above. -No need for echocardiogram at this time. (4) Acute respiratory failure with hypoxia Impression: His hypoxia is likely secondary to abdominal splinting/shallow breathing due to abdominal pain and ascites pressing on his diaphragm. -Continue supplemental oxygen and wean as tolerated. -Started furosemide and spironolactone to aid in decreasing ascites. -Incentive spirometry.
[2023-12-20 04:50] LABS: BASOPHILS % (AUTO) 0.5 %; EOSINOPHILS # (AUTO) 0.4 10^3/uL (0.0-0.7); HCT - HEMATOCRIT 34.7 % (42.0-52.0); HGB - HEMOGLOBIN 11.8 g/dL (14.0-18.0); LYMPHOCYTES # (AUTO) 1.7 10^3/uL (1.5-3.5); LYMPHOCYTES % (AUTO) 27.2 %; MEAN CORPUSCULAR HEMOGLOBIN 34.4 pg (27.0-31.0); MEAN CORPUSCULAR VOLUME 101.2 fL (80.0-94.0); MEAN PLATELET VOLUME 9.1 fL (7.4-11.4); MONOCYTES # (AUTO) 0.6 10^3/uL (0.0-1.0); NEUTROPHILS # (AUTO) 3.4 10^3/uL (1.5-6.6); NEUTROPHILS % (AUTO) 55.6 %; PLT - PLATELET COUNT 124 10^3/uL (130-450); RED BLOOD COUNT 3.43 10^6/uL (4.70-6.10); RED CELL DISTRIBUTION WIDTH 14.3 % (12.0-15.0); WHITE BLOOD COUNT 6.1 x10^3/uL (4.8-10.8)
[2023-12-20 04:58] LABS: INR 1.5 (0.8-1.2); PT - PROTHROMBIN TIME 15.8 secs (9.9-12.6)
[2023-12-20 05:29] LABS: ALBUMIN 2.3 g/dL (3.2-5.5); ALBUMIN/GLOBULIN RATIO 0.6 (1.0-2.2); BILIRUBIN,TOTAL 2.1 mg/dL (0.2-1.0); CALCIUM 8.1 mg/dL (8.5-10.3); CREATININE 0.9 mg/dL (0.6-1.3); POTASSIUM 3.7 mmol/L (3.5-4.5); TOTAL PROTEIN 6.4 g/dL (6.4-8.9)
[2023-12-20] MEDS: oxyCODONE 5 MG TABLET PO PRN (09:28)
[2023-12-20] MEDS: HYDROmorphone 1 MG/ML CARPUJECT IVP PRN (09:36)
[2023-12-20] MEDS ORDERED: iohexoL-300 100 ML VIAL ONE (12:04)
--- NOTE | 2023-12-20 12:32 | PROVIDER PROGRESS NOTE ---
Subjective - Prog Note Date Prog Note Date: 12/20/23 Prog Note Time: 12:30 - Subjective Pt reports feeling: No change Subjective: No acute events overnight. He reports that overall his abdominal pain has not improved essentially since admission. Denies any nausea, vomiting, diarrhea or melena. Continues to ask for IV Dilaudid frequently. Remains afebrile. Ascites fluid culture no growth thus far. Objective - Vital Signs/Intake & Output Reviewed Vital Signs: Yes Vital Signs: Vital Signs x48h Temp Pulse Resp BP Pulse Ox 12/20/23 08:00 36.6 C 102 H 18 128/75 96 Intake & Output: Intake & Output 12/17/23 12/18/23 12/19/23 12/20/23 23:59 23:59 23:59 23:59 Intake Total 920 1700 1950 480 Output Total 100 100 Balance 820 1700 1850 480 - Objective General Appearance: positive: No acute distress, Alert, Other (Appears chronically ill and older than stated age) Eyes Bilateral: positive: Normal inspection, PERRL, EOMI ENT: positive: ENT inspection nml, Pharynx nml, No signs of dehydration Neck: positive: Nml inspection, Thyroid nml, No JVD, Trachea midline Respiratory: positive: Chest non-tender, No respiratory distress, Breath sounds nml. negative: Wheezes, Rales, Rhonchi Cardiovascular: positive: Regular rate & rhythm, No murmur, No gallop Abdomen: positive: Other (Slightly firm, distended with fluid wave, diffuse tenderness to palpation but no guarding or rebound. Bowel sounds present.) Skin: positive: Color nml, No rash, Warm, Dry Extremities: positive: Pedal edema (2+ edema bilaterally) Neurologic/Psychiatric: positive: Oriented x3, CN's nml (2-12), Motor nml, Sensation nml - Lab Results Fish Bones: 12/20/23 04:26 12/20/23 04:26 Other Labs: Lab Results x24hrs 12/20/23 12/20/23 12/20/23 Range/Units 04:26 04:26 04:26 WBC (4.8-10.8) x10^3/uL RBC (4.70-6.10) 10^6/uL Hgb (14.0-18.0) g/dL Hct (42.0-52.0) % MCV (80.0-94.0) fL MCH (27.0-31.0) pg MCHC (32.0-36.0) g/dL RDW (12.0-15.0) % Plt Count (130-450) 10^3/uL MPV (7.4-11.4) fL Neut # (Auto) (1.5-6.6) 10^3/uL Lymph # (Auto) (1.5-3.5) 10^3/uL [place] # (Auto) (0.0-1.0) 10^3/uL Eos # (Auto) (0.0-0.7) 10^3/uL Baso # (Auto) (0.0-0.1) 10^3/uL Absolute Nucleated RBC x10^3/uL Nucleated RBC % /100WBC PT 15.8 H (9.9-12.6) secs INR 1.5 H (0.8-1.2) Sodium 133 L (135-145) mmol/L Potassium 3.7 (3.5-4.5) mmol/L Chloride 98 L (101-111) mmol/L Carbon Dioxide 30 (21-32) mmol/L Anion Gap 5.0 L (6-13) BUN 12 (6-20) mg/dL Creatinine 0.9 (0.6-1.3) mg/dL Estimated GFR (MDRD) 89 (>89) Glucose 107 H (74-104) mg/dL Calcium 8.1 L (8.5-10.3) mg/dL Total Bilirubin 2.1 H (0.2-1.0) mg/dL AST 83 H (10-42) IU/L ALT 62 H (10-60) IU/L Alkaline Phosphatase 151 H (42-121) IU/L Total Protein 6.4 (6.4-8.9) g/dL Albumin 2.3 L (3.2-5.5) g/dL Globulin 4.1 (2.1-4.2) g/dL Albumin/Globulin Ratio 0.6 L (1.0-2.2) Procalcitonin Immunoas 1.55 H (<0.5) ng/mL 12/20/23 Range/Units 04:26 WBC 6.1 (4.8-10.8) x10^3/uL RBC 3.43 L (4.70-6.10) 10^6/uL Hgb 11.8 L (14.0-18.0) g/dL Hct 34.7 L (42.0-52.0) % MCV 101.2 H (80.0-94.0) fL MCH 34.4 H (27.0-31.0) pg MCHC 34.0 (32.0-36.0) g/dL RDW 14.3 (12.0-15.0) % Plt Count 124 L (130-450) 10^3/uL MPV 9.1 (7.4-11.4) fL Neut # (Auto) 3.4 (1.5-6.6) 10^3/uL Lymph # (Auto) 1.7 (1.5-3.5) 10^3/uL [place] # (Auto) 0.6 (0.0-1.0) 10^3/uL Eos # (Auto) 0.4 (0.0-0.7) 10^3/uL Baso # (Auto) 0.0 (0.0-0.1) 10^3/uL Absolute Nucleated RBC 0.00 x10^3/uL Nucleated RBC % 0.0 /100WBC PT (9.9-12.6) secs INR (0.8-1.2) Sodium (135-145) mmol/L Potassium (3.5-4.5) mmol/L Chloride (101-111) mmol/L Carbon Dioxide (21-32) mmol/L Anion Gap (6-13) BUN (6-20) mg/dL Creatinine (0.6-1.3) mg/dL Estimated GFR (MDRD) (>89) Glucose (74-104) mg/dL Calcium (8.5-10.3) mg/dL Total Bilirubin (0.2-1.0) mg/dL AST (10-42) IU/L ALT (10-60) IU/L Alkaline Phosphatase (42-121) IU/L Total Protein (6.4-8.9) g/dL Albumin (3.2-5.5) g/dL Globulin (2.1-4.2) g/dL Albumin/Globulin Ratio (1.0-2.2) Procalcitonin Immunoas (<0.5) ng/mL Sepsis Event Note (H) - Evaluation Current Stage of Sepsis: Ruled out Assessment/Plan - Problem List (1) SBP (spontaneous bacterial peritonitis) Impression: He presented with abdominal pain, leukocytosis and CT findings consistent with colitis and ascites. -He underwent diagnostic paracentesis which showed a WBC of 21,000 that is 87% neutrophils. -Fluid culture NGTD thus far. -Continue IV Ceftriaxone, added Metronidazole 12/18/[address] -Currently has no renal dysfunction, hypotension, etc. No need for IV Albumin or Midodrine/Octreotide. -Transition to oral pain medications. -Given continued abdominal pain, will check repeat CT Abdomen to evaluate for other complications. -If still with significant ascites, will try to arrange therapeutic paracentesis. (2) Cirrhosis of liver with ascites Impression: He reports having a history of cirrhosis in the past however he has not been d iagnosed with ascites and has not been on any therapy directed of cirrhosis. Currently has moderate ascites based on CT scan and exam. -Treat SBP as noted above. -Continue furosemide 40 mg and spironolactone 100 mg (new this admission). -Abdominal ultrasound was negative for portal vein thrombosis. -He reports that he will be establishing a PCP in the [place], [place] area as that is where he will go after discharge. (3) Elevated brain natriuretic peptide (BNP) level Impression: His BNP was noted to be mildly elevated at 248 at presentation and he is hypoxic requiring 2 L. He does not appear to be having acute CHF though he does have some fluid retention secondary to his cirrhosis. His hypoxia is likely secondary to abdominal splinting from his ascites and abdominal pain leading to shallow breathing. -No need for IV diuresis however we did start oral furosemide and spironolactone as noted above. -No need for echocardiogram at this time. (4) Acute respiratory failure with hypoxia Impression: His hypoxia is likely secondary to abdominal splinting/shallow breathing due to abdominal pain and ascites pressing on his diaphragm. -Resolved, weaned to room air.. -Started furosemide and spironolactone to aid in decreasing ascites. -Incentive spirometry.
[2023-12-20] MEDS: iohexoL-300 100 ML VIAL IVP ONE (15:54)
[2023-12-21 05:24] LABS: BASOPHILS % (AUTO) 0.6 %; EOSINOPHILS # (AUTO) 0.4 10^3/uL (0.0-0.7); EOSINOPHILS % (AUTO) 6.4 %; HCT - HEMATOCRIT 34.6 % (42.0-52.0); HGB - HEMOGLOBIN 11.7 g/dL (14.0-18.0); LYMPHOCYTES # (AUTO) 1.8 10^3/uL (1.5-3.5); LYMPHOCYTES % (AUTO) 28.5 %; MEAN CORPUSCULAR HEMOGLOBIN 34.5 pg (27.0-31.0); MEAN CORPUSCULAR HGB CONC 33.8 g/dL (32.0-36.0); MEAN CORPUSCULAR VOLUME 102.1 fL (80.0-94.0); MEAN PLATELET VOLUME 8.8 fL (7.4-11.4); MONOCYTES # (AUTO) 0.7 10^3/uL (0.0-1.0); MONOCYTES % (AUTO) 11.8 %; NEUTROPHILS # (AUTO) 3.2 10^3/uL (1.5-6.6); NEUTROPHILS % (AUTO) 51.7 %; PLT - PLATELET COUNT 115 10^3/uL (130-450); RED BLOOD COUNT 3.39 10^6/uL (4.70-6.10); RED CELL DISTRIBUTION WIDTH 14.3 % (12.0-15.0); WHITE BLOOD COUNT 6.2 x10^3/uL (4.8-10.8)
[2023-12-21 05:40] LABS: ALBUMIN 2.3 g/dL (3.2-5.5); ALBUMIN/GLOBULIN RATIO 0.6 (1.0-2.2); CALCIUM 8.1 mg/dL (8.5-10.3); CREATININE 0.8 mg/dL (0.6-1.3); INR 1.5 (0.8-1.2); PT - PROTHROMBIN TIME 16.3 secs (9.9-12.6); TOTAL PROTEIN 6.4 g/dL (6.4-8.9)
[2023-12-21] MEDS ORDERED: ALBUMIN 25% 12.5 GM/50 ML VIAL IV STA (12:03)
--- NOTE | 2023-12-21 12:11 | PROVIDER PROGRESS NOTE ---
Subjective - Prog Note Date Prog Note Date: 12/21/23 Prog Note Time: 12:10 - Subjective Pt reports feeling: No change Subjective: The patient is not feeling any better this morning. He is having worsening abdominal distention and pain. He has worsening edema in his legs and overall just feels miserable. He says the pressure on his chest from his abdominal distention is making him short of breath. He is having quite a bit of pain in his abdomen. He has had no fever or chills. No chest pain or heart palpitations. No nausea or vomiting. He is not yet had a bowel movement today. No urinary Current Medications - Current Medications Current Medications: Active Medications Generic Name Dose Route Start Last Admin Trade Name Freq PRN Reason Stop Dose Admin Albuterol 2.5 mg 12/18/23 10:54 12/18/23 13:19 Albuterol Neb 2.5 Mg/3 Ml INH 2.5 mg RTQ4H PRN Administration Wheezing Diphenhydramine HCl 50 mg 12/18/23 15:46 12/19/23 20:29 Diphenhydramine 25 Mg Capsule PO 50 mg Q4HR PRN Administration ITCHING Furosemide 40 mg 12/21/23 13:00 Furosemide 40 Mg/4 Ml Vial IVP DAILY OG Heparin Sodium (Porcine) 5,000 unit 12/17/23 21:00 12/21/23 08:24 Heparin 5,000 Unit/Ml Vial SUBQ 5,000 unit BID OG Administration Hydromorphone HCl 1 mg 12/20/23 08:13 12/21/23 05:23 Hydromorphone 1 Mg/Ml Carpuject IVP 1 mg Q4H PRN Administration Breakthrough Pain Ceftriaxone Sodium 2 gm/ 100 mls @ 200 mls/hr 12/18/23 09:00 12/21/23 10:01 Sodium Chloride IV Infused DAILY OG Infusion Metronidazole 500 mg in 100 mls @ 100 mls/hr 12/18/23 16:00 12/21/23 09:20 Flagyl 500 Mg/100 Ml IV Infused Q8H GO Infusion Albumin Human 12.5 gm in 50 mls @ 50 mls/hr 12/21/23 12:03 Albuminar-25 IV 12/21/23 13:02 ONCE STA Ondansetron HCl 4 mg 12/17/23 02:03 Ondansetron 4 Mg/2 Ml Vial IVP Q6HR PRN Nausea / Vomiting Oxycodone HCl 5 mg 12/20/23 08:05 Oxycodone 5 Mg Tablet PO Q4HR PRN Moderate Pain (Level 4-6) Oxycodone HCl 10 mg 12/20/23 08:05 12/21/23 08:23 Oxycodone 5 Mg Tablet PO 10 mg Q4HR PRN Administration Severe Pain (Level 7-10) Pantoprazole Sodium 40 mg 12/17/23 07:00 12/21/23 06:04 Pantoprazole 40 Mg Tablet PO 40 mg QDAC OG Administration Sodium Chloride 10 ml 12/17/23 11:34 12/21/23 05:23 Sodium Chloride Flush 0.9% 10 Ml Syringe IVP 10 ml PRN PRN Administration NEEDED PER PROVIDER ORDERS Sodium Chloride 10 ml 12/17/23 17:00 12/21/23 09:43 Sodium Chloride Flush 0.9% 10 Ml Syringe IVP 10 ml 0100,0900,1700 OG Administration Spironolactone 100 mg 12/18/23 11:00 12/21/23 08:23 Spironolactone 25 Mg Tablet PO 100 mg DAILY OG Administration Sulfamethox/Trimeth 800/160 [Bactrim Ds] 1 tab PO BID 12/17/23 cephALEXin [Keflex] 500 mg PO QID 12/17/23 Objective - Vital Signs/Intake & Output Reviewed Vital Signs: Yes Vital Signs: Vital Signs x48h Temp Pulse Resp BP Pulse Ox 12/21/23 08:00 36.6 C 94 14 130/99 H 98 Intake & Output: Intake & Output 12/18/23 12/19/23 12/20/23 12/21/23 23:59 23:59 23:59 23:59 Intake Total 1700 1950 1760 420 Output Total 100 Balance 1700 1850 1760 420 - Objective General Appearance: positive: Mild distress Eyes Bilateral: positive: Normal inspection ENT: positive: ENT inspection nml Neck: positive: Nml inspection Respiratory: positive: Other (Significantly diminished in the lower bases bilaterally. Otherwise no wheezes rales or rhonchi) Cardiovascular: positive: Regular rate & rhythm, No murmur, No gallop. negative: Friction rub Abdomen: positive: Other (The patient's abdomen is distended and tender to palpation diffusely. He has a positive fluid wave) Skin: positive: Color nml, No rash, Warm, Dry Extremities: positive: Other (He has significant anasarca and edema. Skin is quite tense and tender) Neurologic/Psychiatric: positive: Oriented x3, CN's nml (2-12) - Lab Results Fish Bones: 12/21/23 05:05 12/21/23 05:05 Other Labs: Lab Results x24hrs 12/21/23 12/21/23 12/21/23 Range/Units 05:05 05:05 05:05 WBC 6.2 (4.8-10.8) x10^3/uL RBC 3.39 L (4.70-6.10) 10^6/uL Hgb 11.7 L (14.0-18.0) g/dL Hct 34.6 L (42.0-52.0) % MCV 102.1 H (80.0-94.0) fL MCH 34.5 H (27.0-31.0) pg MCHC 33.8 (32.0-36.0) g/dL RDW 14.3 (12.0-15.0) % Plt Count 115 L (130-450) 10^3/uL MPV 8.8 (7.4-11.4) fL Neut # (Auto) 3.2 (1.5-6.6) 10^3/uL Lymph # (Auto) 1.8 (1.5-3.5) 10^3/uL [place] # (Auto) 0.7 (0.0-1.0) 10^3/uL Eos # (Auto) 0.4 (0.0-0.7) 10^3/uL Baso # (Auto) 0.0 (0.0-0.1) 10^3/uL Absolute Nucleated RBC 0.00 x10^3/uL Nucleated RBC % 0.0 /100WBC PT 16.3 H (9.9-12.6) secs INR 1.5 H (0.8-1.2) Sodium 133 L (135-145) mmol/L Potassium 4.0 (3.5-4.5) mmol/L Chloride 100 L (101-111) mmol/L Carbon Dioxide 30 (21-32) mmol/L Anion Gap 3.0 L (6-13) BUN 10 (6-20) mg/dL Creatinine 0.8 (0.6-1.3) mg/dL Estimated GFR (MDRD) 102 (>89) Glucose 119 H (74-104) mg/dL Calcium 8.1 L (8.5-10.3) mg/dL Total Bilirubin 2.0 H (0.2-1.0) mg/dL AST 89 H (10-42) IU/L ALT 64 H (10-60) IU/L Alkaline Phosphatase 156 H (42-121) IU/L Total Protein 6.4 (6.4-8.9) g/dL Albumin 2.3 L (3.2-5.5) g/dL Globulin 4.1 (2.1-4.2) g/dL Albumin/Globulin Ratio 0.6 L (1.0-2.2) ABX Reporting Has patient been on IV antibiotics over the past 48 hours?: Yes Sepsis Event Note (H) - Evaluation Current Stage of Sepsis: Ruled out Assessment/Plan - Problem List (1) SBP (spontaneous bacterial peritonitis) Impression: The patient will continue IV ceftriaxone. He is also on Flagyl for possible colitis. (2) Cirrhosis of liver with ascites Impression: The patient's ascites has reaccumulated. Will order a paracentesis. He will have IV albumin given with the paracentesis. This will be a therapeutic paracentesis at this point. Will send his ascitic fluid for cytology, cell count and culture to see if we are making progress with his bacterial peritonitis. The patient has diffuse anasarca. Will continue spironolactone. Will hold his p.o. Lasix and place him on 40 mg of IV Lasix twice daily. (3) Acute respiratory failure with hypoxia Impression: Resolved. Chest x-ray has been unremarkable. This is likely due to to the pressure from his tense ascites. Currently stable on room air (4) Colitis Impression: The patient will continue 2 g of IV ceftriaxone. Flagyl was added to his regimen as well as he has evidence of possible colitis on his CT scan. (5) Elevated brain natriuretic peptide (BNP) level Impression: His BNP was noted to be mildly elevated at 248 at presentation and he is hypoxic requiring 2 L. He does not appear to be having acute CHF though he does have some fluid retention secondary to his cirrhosis. His hypoxia is likely secondary to abdominal splinting from his ascites and abdominal pain leading to shallow breathing. (6) Hepatitis C Impression: The patient has a longstanding history of hepatitis C. This is never been treated. He is currently following with a correctional case records supervisor in [place] and reportedly is getting ready to start treatment. Will add cytology to his ascitic fluid (7) Obesity (BMI 30-39.9) Impression: The patient's BMI is 39.8. Hopefully this will improve with diuresis. Encourage good p.o. intake. Will make sure he is on a low-salt diet with 1500 mL fluid restriction (8) Hypoalbuminemia Impression: He will receive albumin with this paracentesis today. This is likely due to his cirrhosis and worsening liver issues. Continue to encourage good p.o. intake. (9) Anemia Impression: Stable. Continue to monitor (10) Thrombocytopenia Impression: Likely due to his underlying liver disease. Stable. Continue to monitor (11) Hyponatremia Impression: Stable. Likely chronic. Continue to monitor Disposition: Inpatient hospitalization remains necessary. The patient has SBP. He has rapidly recurrent ascites. He is requiring parenteral antibiotics and IV diuresis at this point. Timing of disposition will be determined by his clinical course Time spent: 35 minutes
[2023-12-21] MEDS: FUROSEMIDE 40 MG/4 ML VIAL IVP SCH (13:40)
[2023-12-21] MEDS ORDERED: HYDROmorphone 1 MG/ML CARPUJECT IVP PRN (15:47)
[2023-12-21] MEDS: HYDROmorphone 0.5 MG/0.5 ML SYRINGE IVP PRN (16:02)
[2023-12-21] MEDS: oxyCODONE 5 MG TABLET PO PRN (18:49)
--- NOTE | 2023-12-21 19:50 | Ultrasound Report ---
PROCEDURE: Abdomen Limited INDICATIONS: Ascites, therapeutic TECHNIQUE: Ultrasound of the abdominal right upper quadrant was obtained with image documentation. COMPARISONS: None. FINDINGS: Four-quadrant ultrasound shows no evidence of ascites IMPRESSION: No abdominal ascites Reviewed by: Chato Tony MD on 12/21/2023 6:49 PM AKDT Approved by: Chato Tony MD on 12/21/2023 6:49 PM AKDT Station ID: [id number]
--- NOTE | 2023-12-21 22:58 | CT Report ---
PROCEDURE: Abdomen/Pelvis W INDICATIONS: Abdominal pain, evaluate for abscess/other change CONTRAST: 100ml [id number] TECHNIQUE: After the administration of intravenous contrast, a CT scan of the abdomen and pelvis was performed. Images were recorded and evaluated at appropriate window settings. Reformats: coronal and sagittal. F or radiation dose reduction, the following was used: automated exposure control, adjustment of mA and /or kV according to patient size. COMPARISON: 12/16/2023 FINDINGS: Image quality: Diagnostic. Lower chest: No pleural or pericardial effusion. Patchy peripheral groundglass opacities anteriorly i n the left upper lobe. Liver: Cirrhotic liver morphology. No discrete enhancing mass. Gallbladder: Coarse calcification in the gallbladder fundus. Predominantly decompressed gallbladder. Biliary tree: No intrahepatic or extrahepatic dilation, accounting for age. Spleen: Mild splenomegaly, 13.6 cm, stable. Pancreas: Normal. Adrenals: No adrenal nodule. Kidneys and ureters: Symmetric enhancement. No hydroureter or hydronephrosis. Probable right mid pole nonobstructing intrarenal calcification, about 3 mm. Stomach, bowel and peritoneum: Ingested material stomach. No small bowel obstruction. Several loops o f nondilated, fluid-filled small bowel demonstrating mild wall thickening and enhancement in the pelv is. There is adjacent mild fluid. Normal caliber appendix is seen. Increased quantity of solid stool throughout the colon. Resolution of the right-sided colon wall thickening. Trace residual right parac olic gutter fluid. No free air. Lymph nodes: No central or retroperitoneal adenopathy. Vessels: Heavy distal abdominal aortic atherosclerotic calcification. Normal caliber vasculature. Pat ent portal vein. PELVIS Reproductive organs: Unremarkable. Bladder: Normal. Pelvic lymph nodes: No pelvic adenopathy by size criteria. Bones: Chronic L1 compression fracture. Other: Prominent body wall anasarca. IMPRESSION: Resolution of ascending colitis with residual paracolic gutter fluid. Mild small bowel mural enhancement in the pelvis suggesting mild residual gastroenteritis. Cirhotic liver with findings of early portal hypertension. Cholelithiasis and nonobstructing nephrolithiasis. Incidental minor left upper lobe groundglass opacities. Correlate with any respiratory symptoms. Reviewed by: Luly Teixeira MD on 12/21/2023 10:57 PM PDT Approved by: Luly Teixeira MD on 12/21/2023 10:57 PM PDT Station ID: [id number]
[2023-12-22] MEDS: polyethylene glycoL 3350 17 GM PACKET PO SCH (08:41)
[2023-12-22 09:03] LABS: BASOPHILS % (AUTO) 0.7 %; EOSINOPHILS # (AUTO) 0.3 10^3/uL (0.0-0.7); EOSINOPHILS % (AUTO) 5.5 %; HCT - HEMATOCRIT 33.8 % (42.0-52.0); HGB - HEMOGLOBIN 11.3 g/dL (14.0-18.0); LYMPHOCYTES # (AUTO) 1.5 10^3/uL (1.5-3.5); LYMPHOCYTES % (AUTO) 25.1 %; MEAN CORPUSCULAR HEMOGLOBIN 34.3 pg (27.0-31.0); MEAN CORPUSCULAR HGB CONC 33.4 g/dL (32.0-36.0); MEAN CORPUSCULAR VOLUME 102.7 fL (80.0-94.0); MEAN PLATELET VOLUME 8.7 fL (7.4-11.4); MONOCYTES # (AUTO) 0.8 10^3/uL (0.0-1.0); MONOCYTES % (AUTO) 12.8 %; NEUTROPHILS # (AUTO) 3.3 10^3/uL (1.5-6.6); NEUTROPHILS % (AUTO) 55.1 %; PLT - PLATELET COUNT 100 10^3/uL (130-450); RED BLOOD COUNT 3.29 10^6/uL (4.70-6.10); RED CELL DISTRIBUTION WIDTH 14.6 % (12.0-15.0)
[2023-12-22 09:21] LABS: BILIRUBIN,DIRECT 1.11 mg/dL (0.03-0.18); MAGNESIUM 1.4 mg/dL (1.7-2.3)
[2023-12-22 09:27] LABS: ALBUMIN 2.3 g/dL (3.2-5.5); BILIRUBIN,TOTAL 2.3 mg/dL (0.2-1.0); CALCIUM 8.1 mg/dL (8.5-10.3); CREATININE 0.8 mg/dL (0.6-1.3); POTASSIUM 3.7 mmol/L (3.5-4.5); TOTAL PROTEIN 6.3 g/dL (6.4-8.9)
[2023-12-22] MEDS: FUROSEMIDE 40 MG/4 ML VIAL IVP SCH (09:45)
--- NOTE | 2023-12-22 13:50 | PROVIDER PROGRESS NOTE ---
Subjective - Prog Note Date Prog Note Date: 12/22/23 Prog Note Time: 13:50 - Subjective Pt reports feeling: Improved Current Medications - Current Medications Current Medications: Active Medications Generic Name Dose Route Start Last Admin Trade Name Freq PRN Reason Stop Dose Admin Albuterol 2.5 mg 12/18/23 10:54 12/18/23 13:19 Albuterol Neb 2.5 Mg/3 Ml INH 2.5 mg RTQ4H PRN Administration Wheezing Diphenhydramine HCl 50 mg 12/18/23 15:46 12/19/23 20:29 Diphenhydramine 25 Mg Capsule PO 50 mg Q4HR PRN Administration ITCHING Furosemide 40 mg 12/22/23 09:00 12/22/23 09:45 Furosemide 40 Mg/4 Ml Vial IVP 40 mg BID OG Administration Heparin Sodium (Porcine) 5,000 unit 12/17/23 21:00 12/22/23 08:41 Heparin 5,000 Unit/Ml Vial SUBQ 5,000 unit BID OG Administration Hydromorphone HCl 0.5 mg 12/21/23 15:57 12/22/23 06:16 Hydromorphone 0.5 Mg/0.5 Ml Syringe IVP 0.5 mg Q4H PRN Administration Breakthrough Pain Ceftriaxone Sodium 2 gm/ 100 mls @ 200 mls/hr 12/18/23 09:00 12/22/23 09:45 Sodium Chloride IV 200 mls/hr DAILY OG Administration Metronidazole 500 mg in 100 mls @ 100 mls/hr 12/18/23 16:00 12/22/23 09:35 Flagyl 500 Mg/100 Ml IV Infused Q8H OG Infusion Ondansetron HCl 4 mg 12/17/23 02:03 Ondansetron 4 Mg/2 Ml Vial IVP Q6HR PRN Nausea / Vomiting Oxycodone HCl 5 mg 12/20/23 08:05 12/21/23 18:49 Oxycodone 5 Mg Tablet PO 5 mg Q4HR PRN Administration Moderate Pain (Level 4-6) Oxycodone HCl 10 mg 12/20/23 08:05 12/22/23 08:40 Oxycodone 5 Mg Tablet PO 10 mg Q4HR PRN Administration Severe Pain (Level 7-10) Pantoprazole Sodium 40 mg 12/17/23 07:00 12/22/23 06:13 Pantoprazole 40 Mg Tablet PO 40 mg QDAC OG Administration Polyethylene Glycol 17 gm 12/22/23 09:00 12/22/23 08:41 Polyethylene Glycol 3350 17 Gm Packet PO 17 gm DAILY OG Administration Sodium Chloride 10 ml 12/17/23 11:34 12/21/23 05:23 Sodium Chloride Flush 0.9% 10 Ml Syringe IVP 10 ml PRN PRN Administration NEEDED PER PROVIDER ORDERS Sodium Chloride 10 ml 12/17/23 17:00 12/22/23 08:42 Sodium Chloride Flush 0.9% 10 Ml Syringe IVP 10 ml 0100,0900,1700 OG Administration Spironolactone 100 mg 12/18/23 11:00 12/22/23 08:41 Spironolactone 25 Mg Tablet PO 100 mg DAILY OG Administration Sulfamethox/Trimeth 800/160 [Bactrim Ds] 1 tab PO BID 12/17/23 cephALEXin [Keflex] 500 mg PO QID 12/17/23 Objective - Vital Signs/Intake & Output Reviewed Vital Signs: Yes Vital Signs: Vital Signs x48h Temp Resp BP Pulse Ox 12/22/23 08:00 36.6 C 18 107/84 H 97 Intake & Output: Intake & Output 12/19/23 12/20/23 12/21/23 12/22/23 23:59 23:59 23:59 23:59 Intake Total 1950 1760 1752 950 Output Total 100 Balance 1850 1760 1752 950 - Objective General Appearance: positive: Anxious Eyes Bilateral: positive: Normal inspection ENT: positive: ENT inspection nml Neck: positive: Nml inspection Respiratory: positive: Chest non-tender, No respiratory distress, Breath sounds nml Cardiovascular: positive: Regular rate & rhythm, No murmur, No gallop. negative: Friction rub Abdomen: positive: Non-tender, Other (The patient's abdomen is distended and firm but somewhat less firm than yesterday. Tender to palpation diffusely.) Skin: positive: Color nml, No rash, Warm Extremities: positive: Pedal edema (The patient has edema and anasarca that extends up into the abdomen.) Neurologic/Psychiatric: positive: Oriented x3, CN's nml (2-12) - Lab Results Fish Bones: 12/22/23 08:54 12/22/23 08:54 Other Labs: Lab Results x24hrs 12/22/23 12/22/23 Range/Units 08:54 08:54 WBC 6.0 (4.8-10.8) x10^3/uL RBC 3.29 L (4.70-6.10) 10^6/uL Hgb 11.3 L (14.0-18.0) g/dL Hct 33.8 L (42.0-52.0) % MCV 102.7 H (80.0-94.0) fL MCH 34.3 H (27.0-31.0) pg MCHC 33.4 (32.0-36.0) g/dL RDW 14.6 (12.0-15.0) % Plt Count 100 L (130-450) 10^3/uL MPV 8.7 (7.4-11.4) fL Neut # (Auto) 3.3 (1.5-6.6) 10^3/uL Lymph # (Auto) 1.5 (1.5-3.5) 10^3/uL [place] # (Auto) 0.8 (0.0-1.0) 10^3/uL Eos # (Auto) 0.3 (0.0-0.7) 10^3/uL Baso # (Auto) 0.0 (0.0-0.1) 10^3/uL Absolute Nucleated RBC 0.00 x10^3/uL Nucleated RBC % 0.0 /100WBC Sodium 135 (135-145) mmol/L Potassium 3.7 (3.5-4.5) mmol/L Chloride 98 L (101-111) mmol/L Carbon Dioxide 35 H (21-32) mmol/L Anion Gap 2.0 L (6-13) BUN 10 (6-20) mg/dL Creatinine 0.8 (0.6-1.3) mg/dL Estimated GFR (MDRD) 102 (>89) Glucose 115 H (74-104) mg/dL Calcium 8.1 L (8.5-10.3) mg/dL Phosphorus 3.0 (2.5-5.0) mg/dL Magnesium 1.4 L (1.7-2.3) mg/dL Total Bilirubin 2.3 H (0.2-1.0) mg/dL Direct Bilirubin 1.11 H (0.03-0.18) mg/dL AST 92 H (10-42) IU/L ALT 64 H (10-60) IU/L Alkaline Phosphatase 130 H (42-121) IU/L Total Protein 6.3 L (6.4-8.9) g/dL Albumin 2.3 L (3.2-5.5) g/dL Globulin 4.0 (2.1-4.2) g/dL ABX Reporting Has patient been on IV antibiotics over the past 48 hours?: Yes Sepsis Event Note (H) - Evaluation Current Stage of Sepsis: Ruled out Assessment/Plan - Problem List (1) SBP (spontaneous bacterial peritonitis) Impression: Continue IV ceftriaxone. This is day #5 of treatment. Culture did not grow any organisms. Review of the up-to-date literature indicates that it is recommended to treat this for 5 days. Will stop antibiotic therapy today. (3) Anasarca Impression: The patient has diffuse edema and anasarca. Currently on Lasix 40 mg twice daily. Will likely change him over to an oral regimen tomorrow. Continue spironolactone. (4) Acute respiratory failure with hypoxia Impression: Resolved. (5) Colitis Impression: Will place the patient on p.o. Augmentin to complete a course of therapy. (6) Elevated brain natriuretic peptide (BNP) level Impression: Likely due to his diffuse anasarca (7) Hepatitis C Impression: This has not been treated. He has a GI doctor in [place] that he is going to follow-up with shortly (8) Obesity (BMI 30-39.9) Impression: Weight loss is recommended through dietary modification and exercise as tolerated (9) Hypoalbuminemia Impression: Continue to encourage good p.o. intake. No doubt this is contributing to his anasarca (10) Anemia Impression: Stable (11) Thrombocytopenia Impression: Stable. This is due to his underlying liver disease (12) Hyponatremia Impression: Chronic and stable Disposition: Inpatient hospitalization remains necessary. The patient is still being diuresed with IV Lasix. He is slowly improving. I anticipate that he can be changed over to an oral regimen and discharge tomorrow Time spent: 35 minutes
[2023-12-22] MEDS: AMOX/CLAV 875 MG/125 MG TABLET PO SCH (22:10)
[2023-12-23 05:37] LABS: BASOPHILS % (AUTO) 0.6 %; EOSINOPHILS # (AUTO) 0.4 10^3/uL (0.0-0.7); EOSINOPHILS % (AUTO) 6.3 %; HCT - HEMATOCRIT 34.4 % (42.0-52.0); HGB - HEMOGLOBIN 11.9 g/dL (14.0-18.0); LYMPHOCYTES # (AUTO) 1.8 10^3/uL (1.5-3.5); LYMPHOCYTES % (AUTO) 28.6 %; MEAN CORPUSCULAR HEMOGLOBIN 35.1 pg (27.0-31.0); MEAN CORPUSCULAR HGB CONC 34.6 g/dL (32.0-36.0); MEAN CORPUSCULAR VOLUME 101.5 fL (80.0-94.0); MONOCYTES # (AUTO) 0.8 10^3/uL (0.0-1.0); MONOCYTES % (AUTO) 12.5 %; NEUTROPHILS # (AUTO) 3.2 10^3/uL (1.5-6.6); NEUTROPHILS % (AUTO) 51.2 %; PLT - PLATELET COUNT 100 10^3/uL (130-450); RED BLOOD COUNT 3.39 10^6/uL (4.70-6.10); RED CELL DISTRIBUTION WIDTH 14.6 % (12.0-15.0); WHITE BLOOD COUNT 6.2 x10^3/uL (4.8-10.8)
[2023-12-23 05:53] LABS: ALBUMIN 2.3 g/dL (3.2-5.5); BILIRUBIN,DIRECT 1.06 mg/dL (0.03-0.18); BILIRUBIN,TOTAL 2.1 mg/dL (0.2-1.0); CALCIUM 8.4 mg/dL (8.5-10.3); CREATININE 0.7 mg/dL (0.6-1.3); MAGNESIUM 1.5 mg/dL (1.7-2.3); PHOSPHORUS 3.2 mg/dL (2.5-5.0); POTASSIUM 3.9 mmol/L (3.5-4.5); TOTAL PROTEIN 6.5 g/dL (6.4-8.9)
[2023-12-23 07:50] VITALS: BP 100/66; O2SAT 94
[2023-12-23] MEDS: MAGNESIUM SULFATE 2 GRAM 2 GM/50 ML BAG IV ONE (08:52)
--- NOTE | 2023-12-23 11:38 | Discharge Plan ---
Discharge Plan Problem Reviewed?: Yes Disposition: Home, Self Care Condition: Fair Prescriptions: Spironolactone [Aldactone] 100 mg PO DAILY 30 Days #120 tab Amox/Clav 875/125 [Augmentin 875/125 Tab] 1 tab PO BID 7 Days #14 tab Furosemide [Lasix] 40 mg PO DAILY #30 tablet Pantoprazole [Protonix] 40 mg PO QDAC #30 tab Diet: Low Sodium (2g Na with 1500 mL fluid restriction) Activity Restrictions: No Restrictions Shower Restrictions: No Driving Restrictions: No Health Concerns: You were admitted with ascites which is fluid in the abdomen. The fluid had become infected which is called spontaneous bacterial peritonitis. She completed a course of IV antibiotics for this in the hospital. The CT scan of your abdomen and pelvis also indicated that you had evidence of colitis. You will complete a course of by mouth Augmentin for this as an outpatient. You have had worsening issues with your liver. You have had an extreme amount of f luid buildup in your tissues and we treated that with IV Lasix. I am writing a prescription for spironolactone and Lasix to help manage the fluid going forward. You should follow a 2 g low-sodium diet and restrict your fluids to about 1500 mL a day. You have an appointment in [place] on December 27 with your GI doctor and that appointment should be kept. Please come back to the emergency room for any further issues in the meantime. Assessment: 1. Spontaneous bacterial peritonitis The patient completed a course of IV ceftriaxone during this hospitalization. He had greater than 20,000 white blood cells noted in his ascitic fluid. Culture did not grow any organisms. He has been started on Lasix and spironolactone to manage ascites going forward 2. Anasarca The patient had diffuse anasarca. He was aggressively diuresed with IV Lasix with improvement. He will continue 40 mg of Lasix daily as well as spironolactone 100 mg daily as an outpatient. 3. Acute respiratory failure with hypoxia Resolved. This resolved after paracentesis. No evidence of pneumonia or infection. 4. Colitis The patient will complete a course of p.o. Augmentin at discharge 5. Elevated BNP No evidence of heart failure. Likely due to his diffuse anasarca. Improved with diuresis 6. 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 He is following with a GI doctor in [place]. The patient has an appointment on December 27 and he should keep that appointment. 7. Obesity BMI 39.8 The patient should follow a 2 g sodium diet with 1500 mL fluid restriction. Weight loss is recommended through dietary modification and exercise as tolerated 8. Hypoalbuminemia Continue to encourage good p.o. intake. No doubt this contributed to his anas arca 9. Anemia Remained stable during this hospitalization 10. Thrombocytopenia This is due to his underlying liver disease. Stable 11. Hyponatremia Chronic and stable No Smoking: If you smoke, Please STOP! Call for help.
--- NOTE | 2023-12-23 13:03 | DISCHARGE SUMMARY ---
Discharge Summary Admit Date: 12/17/23 Discharge Date: 12/23/23 Discharging Provider: Chata Farmer PA-C Primary Care Provider: Out of town provider, he is establishing care with new group in [place] Code Status: Attempt Resuscitation Condition at Discharge: Fair Discharge Disposition: 01 Home, Self Care - DIAGNOSES Discharge Diagnoses with Status of Each Condition: 1. Spontaneous bacterial peritonitis The patient completed a course of IV ceftriaxone during this hospitalization. He had greater than 20,000 white blood cells noted in his ascitic fluid. Culture did not grow any organisms. He has been started on Lasix and spironolactone to manage ascites going forward 2. Anasarca The patient had diffuse anasarca. He was aggressively diuresed with IV Lasix with improvement. He will continue 40 mg of Lasix daily as well as spironolactone 100 mg daily as an outpatient. 3. Acute respiratory failure with hypoxia Resolved. This resolved after paracentesis. No evidence of pneumonia or infe ction. 4. Colitis The patient will complete a course of p.o. Augmentin at discharge 5. Elevated BNP No evidence of heart failure. Likely due to his diffuse anasarca. Improved with diuresis 6. 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 He is following with a GI doctor in [place]. The patient has an appointment on December 27 and he should keep that appointment. 7. Obesity BMI 39.8 The patient should follow a 2 g sodium diet with 1500 mL fluid restriction. Weight loss is recommended through dietary modification and exercise as tolerated 8. Hypoalbuminemia Continue to encourage good p.o. intake. No doubt this contributed to his anasarca 9. Anemia Remained stable during this hospitalization 10. Thrombocytopenia This is due to his underlying liver disease. Stable 11. Hyponatremia Chronic and stable - HPI History of Present Illness: From the admission HP: History of Hep C cirrhosis presents to [facility] with complaints of bloating and abdominal pain. denies any changes in his stools or fever. also complains of cough. does not have any chest pain. - HOSPITAL COURSE Hospital Course: Please see complete medical record for details. This was a prolonged hospitalization and this will be a brief summary. The patient was admitted to the hospital. He was found to have spontaneous bacterial peritonitis and was treated with IV ceftriaxone. CT imaging also revealed evidence of colitis. He did undergo paracentesis. His hospitalization was complicated by worsening anasarca. He was significantly uncomfortable. He was aggressively diuresed with IV Lasix. The patient did improve. He has been started on spironolactone and p.o. Lasix at discharge. He has an appointment with his offal baler in [facility] on December 28, 2023. He is [facility] and will be traveling back to [place] this coming week. He is advised to keep that appointment. At this point maximum hospital benefit has been reached. The patient will be discharged today in stable condition. - ALLERGIES Allergies/Adverse Reactions: Allergies Allergy/AdvReac Type Severity Reaction Status Date / Time No Known Drug Allergies Allergy Verified 12/16/23 20:37 - MEDICATIONS Home Medications: Ambulatory Orders Medication Instructions Recorded Confirmed Amox/Clav 875/125 [Augmentin 1 tab PO BID 7 Days #14 tab 12/23/23 875/125 Tab] Furosemide [Lasix] 40 mg PO DAILY #30 tablet 12/23/23 Pantoprazole [Protonix] 40 mg PO QDAC #30 tab 12/23/23 Spironolactone [Aldactone] 100 mg PO DAILY 30 Days #120 tab 12/23/23 - PHYSICAL EXAM AT DISCHARGE General Appearance: positive: No acute distress Eyes Bilateral: positive: Normal inspection ENT: positive: ENT inspection nml Neck: positive: Nml inspection Respiratory: positive: Chest non-tender, No respiratory distress, Breath sounds nml Cardiovascular: positive: Regular rate & rhythm, No murmur, No gallop. negative: Friction rub Abdomen: positive: Other (Mildly distended and mild tenderness to palpation diffusely.) Extremities: positive: Pedal edema (He does have edema in his lower extremities that extends up into the presacral area. Much improved from the time of admission) Neurologic/Psychiatric: positive: Oriented x3, CN's nml (2-12) - LABS Result Diagrams: 12/23/23 05:17 12/23/23 05:17 - SEPSIS Current Stage of Sepsis: Ruled out - FOLLOW UP Follow Up: The patient will follow-up with his offal baler in [place] on December 28, 2023. He states that he is in the process of being referred to a primary care provider in [place] and will get that set up when he gets back to [place]. At this point he does not know the office or provider name. - TIME SPENT Time Spent in Discharge (Minutes): 45
== END 2023-12-23 13:25 | disposition home or self-care (01) | DRG 371 ==
LOC: ED 20:10 → MS2 12-17 11:34
PROVIDERS: ADMIT Physician Assistant Medical; ATTEND Physician Assistant
PROC: 0W9G3ZX Drainage of Peritoneal Cavity, Percutaneous Approach, Diagnostic (ICD-10-PCS; principal; 2023-12-17)
DX: K65.2 Spontaneous bacterial peritonitis (principal); J96.01 Acute respiratory failure with hypoxia; R18.8 Other ascites; E87.1 Hypo-osmolality and hyponatremia; R60.1 Generalized edema; K52.9 Noninfective gastroenteritis and colitis, unspecified; K74.60 Unspecified cirrhosis of liver; B19.20 Unspecified viral hepatitis C without hepatic coma; E66.9 Obesity, unspecified; Z68.39 Body mass index [BMI] 39.0-39.9, adult; E88.09 Other disorders of plasma-protein metabolism, not elsewhere classified; D64.9 Anemia, unspecified; D69.6 Thrombocytopenia, unspecified; F17.210 Nicotine dependence, cigarettes, uncomplicated; R79.89 Other specified abnormal findings of blood chemistry
CPT/HCPCS: 36415; 49082; 71275; 74177; 76705; 80048; 80053; 80069; 80076; 81003; 82140; 82803; 83605; 83690; 83735; 83880; 84145; 85025; 85610; 87040; 87070; 87205; 87633; 87640; 89051; 94640; 96365; 96375; 96376; 99284; 99285; A9270; J1170; J2185; Q9967; 81001; 87086